=== PATIENT | male | born 1980 | race Caucasian/White ===

== ENCOUNTER 2022-10-26 11:26 | Outpatient (CLI) | payer BC, SELFPAY ==
[2022-10-26 17:31] LABS: Chloride* 103 mmol/L (96-114); Potassium* 4.7 mmol/L (3.6-5.1); Sodium* 139 mmol/L (135-149)
[2022-10-26 17:33] LABS: Cholesterol* 237 mg/dL (90-199)
[2022-10-26 17:34] LABS: Blood Urea Nitrogen* 22 mg/dL (5-24); Calcium* 9.8 mg/dL (8.4-10.6); Carbon Dioxide* 29 mmol/L (20-32); Creatinine* 1.1 mg/dL (0.5-1.5); Estimated Glomerular Filt Rate 86 ml/min; Glucose* 105 mg/dL (60-115); HDL Cholesterol* 93 mg/dL (>=40); LDL Cholesterol Calculated 132 mg/dL (<100); Triglycerides* 61 mg/dL (40-149)
== END 2022-10-26 11:27 | disposition home or self-care (01) ==
PROVIDERS: PCP Family Medicine; Visit Provider Family Medicine
DX: Z00.00 Encounter for general adult medical examination without abnormal findings (principal); E55.9 Vitamin D deficiency, unspecified; Z13.6 Encounter for screening for cardiovascular disorders
CPT/HCPCS: 80048; 80061

== ENCOUNTER 2025-03-25 10:38 | Outpatient (CLI) | payer BC, SELFPAY | END 2025-03-25 10:39 | disposition home or self-care (01) | PROVIDERS: PCP Family Medicine; Visit Provider Family Medicine | DX: Z00.00 Encounter for general adult medical examination without abnormal findings (principal); E55.9 Vitamin D deficiency, unspecified; Z13.6 Encounter for screening for cardiovascular disorders | CPT/HCPCS: 80048; 80061; 82306 ==